=== PATIENT | male | born 1985 | race Caucasian/White ===

== ENCOUNTER 2021-10-09 13:42 | Emergency (ER) | payer BC ==
[2021-10-09] MEDS ORDERED: Morphine 4 MG/ML VIAL IM ONE (15:09)
[2021-10-09] MEDS ORDERED: Ketorolac 60 MG/2 ML SDV IM ONE (16:11)
== END 2021-10-09 17:07 | disposition home or self-care (01) ==
LOC: MW.ED 13:42
DX: M54.31 Sciatica, right side (principal); K21.9 Gastro-esophageal reflux disease without esophagitis; E11.9 Type 2 diabetes mellitus without complications; Z79.84 Long term (current) use of oral hypoglycemic drugs; Z79.899 Other long term (current) drug therapy; Z72.0 Tobacco use
CPT/HCPCS: 72100; 96372; 99283; J1885; J2270